=== PATIENT | male | born 1975 | race Caucasian/White ===

== ENCOUNTER 2017-05-08 18:35 | Emergency (ER) | payer SELFPAY ==
[~2017-05-08] VITALS: Ht 185.4 cm; Wt 104.3 kg
[2017-05-08 18:38] VITALS: BP 130/80
[2017-05-08] MEDS ORDERED: LIDOCAINE 1% 500 MG/50 ML VIAL INJ SCH (20:15)
[2017-05-08] MEDS ORDERED: LIDOCAINE 2% 1000 MG/50 ML VIAL INJ ONE (20:17)
[2017-05-08] MEDS ORDERED: HYDROcodone/APAP 5/325 MG 1 TAB TAB PO ONE (21:05)
[2017-05-08] MEDS ORDERED: BACITRACIN OINT 500 UNITS/GM PKT TP ONE ×2 (21:10→21:13)
[2017-05-08 21:42] VITALS: BP 130/89
== END 2017-05-08 21:42 | disposition home or self-care (01) ==
LOC: MED 18:35
DX: S61.210A Laceration without foreign body of right index finger without damage to nail, initial encounter (principal); J45.909 Unspecified asthma, uncomplicated; W45.8XXA Other foreign body or object entering through skin, initial encounter; Y93.H2 Activity, gardening and landscaping; Y92.89 Other specified places as the place of occurrence of the external cause; Y99.8 Other external cause status
CPT/HCPCS: 12001; 73140; 90471; 90715; 99284; J2001; Q0092

== ENCOUNTER 2017-05-10 18:11 | Emergency (ER) | payer SELFPAY ==
[~2017-05-10] VITALS: Ht 185.4 cm; Wt 104.3 kg
--- NOTE | 2017-05-10 18:35 | NUR ---
PT AMBULATED TO [facility]
[2017-05-10 18:40] VITALS: BP 144/97
--- NOTE | 2017-05-10 18:47 | NUR ---
PATIENT PRESENTS TO ED WITH SUTURE REPAIR TO RIGHT 2ND DIGIT S/P LAC WHILE GARDENING 05/08/2017 HX--DENIES RX--NONE; DENIES N/V/D; SKIN IS PINK/WARM/DRY; AAOX4 WITH EVEN AND STEADY GAIT; LUNGS CLEAR BL; HR EVEN AND REGULAR; PT DENIES ANY FEVER, CP, SOB, OR COUGH AT THIS TIME; PATIENT STATES PAIN OF 0/10 AT THIS TIME; VSS; PATIENT POSITIONED FOR COMFORT; ER MD MADE AWARE OF PT STATUS.
--- NOTE | 2017-05-10 19:16 | NUR ---
REPORT GIVEN TO JADEN SHAW FOR CONTINUATION OF CARE
--- NOTE | 2017-05-10 20:15 | NUR ---
PATIENT RESTING AT THIS TIME. NO SIGNS OF DISTRESS.
[2017-05-10 21:00] VITALS: BP 139/89
--- NOTE | 2017-05-10 21:00 | NUR ---
Patient discharged with v/s stable. Written and verbal after care instructions given and explained. Patient verbalized understanding. Ambulatory with steady gait. All questions addressed prior to discharge. Advised to follow up with PMD.
== END 2017-05-10 21:00 | disposition home or self-care (01) ==
LOC: MED 18:11
DX: S61.210D Laceration without foreign body of right index finger without damage to nail, subsequent encounter (principal); J45.909 Unspecified asthma, uncomplicated; X58.XXXD Exposure to other specified factors, subsequent encounter
CPT/HCPCS: 99281

== ENCOUNTER 2018-05-07 04:23 | Emergency (ER) | payer SELFPAY ==
[~2018-05-07] VITALS: Ht 182.9 cm; Wt 104.3 kg
[2018-05-07 04:30] VITALS: BP 148/90
--- NOTE | 2018-05-07 04:33 | NUR ---
PT PRESENTS TO ED WITH RIGHT HAND EDEMA. UNKNOWN CAUSE. PT STATES MILD TINGLING TO RIGHT HAND. CAP REFILL <3 SEC. RIGHT HAND STRENGTH REDUCED; STATES PAIN WHEN USING RIGHT HAND, 6/10 PAIN. RINGS REMOVED FROM RIGHT HAND. VSS. ER MD AWARE. CONTINUE TO MONITOR.
--- NOTE | 2018-05-07 04:33 | NUR ---
PT TAKEN TO BED 7
--- NOTE | 2018-05-07 05:23 | NUR ---
Ultrasound at bedside.
[2018-05-07 05:50] VITALS: BP 148/90
--- NOTE | 2018-05-07 05:50 | NUR ---
Patient discharged with v/s stable. Written and verbal after care instructions given and explained. Patient alert, oriented and verbalized understanding of instructions. Ambulatory with steady gait. All questions addressed prior to discharge. ID band removed. Patient advised to follow up with PMD. Rx of BACTRIMA AND KEFLEX given. Patient educated on indication of medication including possible reaction and side effects. Opportunity to ask questions provided and answered.
== END 2018-05-07 05:50 | disposition home or self-care (01) ==
LOC: MED 04:23
DX: L03.113 Cellulitis of right upper limb (principal); J45.909 Unspecified asthma, uncomplicated
CPT/HCPCS: 93971; 99284; Q0092

== ENCOUNTER 2020-08-31 16:51 | Emergency (ER) | payer SELFPAY ==
[~2020-08-31] VITALS: Ht 185.4 cm; Wt 124.7 kg
[2020-08-31 16:53] VITALS: BP 164/94
[2020-08-31] MEDS ORDERED: BACI1PAC6 TP (18:22)
[2020-08-31] MEDS ORDERED: BACITRACIN OINT 500 UNITS/GM PKT TP ONE (18:29)
[2020-08-31 18:33] VITALS: BP 156/65
[2020-08-31] MEDS: BACITRACIN OINT 500 UNITS/GM PKT TP ONE ×2 (18:34)
== END 2020-08-31 18:33 | disposition home or self-care (01) ==
LOC: MED 16:51
DX: I87.8 Other specified disorders of veins (principal); I87.2 Venous insufficiency (chronic) (peripheral); I10 Essential (primary) hypertension; J45.909 Unspecified asthma, uncomplicated; F12.90 Cannabis use, unspecified, uncomplicated; F17.210 Nicotine dependence, cigarettes, uncomplicated; Z79.899 Other long term (current) drug therapy
CPT/HCPCS: 73610; 82948; 99284

== ENCOUNTER 2020-09-29 22:07 | Emergency (ER) | payer SELFPAY ==
[~2020-09-29] VITALS: Ht 185.4 cm; Wt 113.4 kg
[~2020-09-29 22:07] MED LIST: BACI1PAC6 TP
[2020-09-29 22:15] VITALS: BP 151/91
--- NOTE | 2020-09-29 22:15 | NUR ---
pt ambulated to bed 11
--- NOTE | 2020-09-29 22:15 | NUR ---
44/m bib self c/o bilateral foot pain 09/16 for a couple of days. swelling and non-pitting edema noted upon assessment. pt also with cellulitis on left foot. denies pmh nkda
--- NOTE | 2020-09-29 22:20 | NUR ---
dr. khan at bedside examining patient
[2020-09-29] MEDS ORDERED: COMP1EAC MC (22:36)
[2020-09-29] MEDS ORDERED: CEPH-588 PO (22:36)
[2020-09-29] MEDS ORDERED: FURO-570 PO (22:36)
[2020-09-29] MEDS ORDERED: IBUP-2218 PO (22:36)
[2020-09-29] MEDS ORDERED: BACITRACIN OINT 500 UNITS/GM PKT TP ONE ×2 (22:45→22:47)
[2020-09-29 22:55] VITALS: BP 151/91
--- NOTE | 2020-09-29 22:55 | NUR ---
Patient discharged with v/s stable. Written and verbal after care instructions given and explained. Patient alert, oriented and verbalized understanding of instructions. Ambulatory with steady gait. All questions addressed prior to discharge. ID band removed. Patient advised to follow up with PMD. Rx of keflex, lasix, ibuprofen, compression stocking given. Patient educated on indication of medication including possible reaction and side effects. Opportunity to ask questions provided and answered.
== END 2020-09-29 22:55 | disposition home or self-care (01) ==
LOC: MED 22:07
DX: R60.0 Localized edema (principal); I87.319 Chronic venous hypertension (idiopathic) with ulcer of unspecified lower extremity; J45.909 Unspecified asthma, uncomplicated
CPT/HCPCS: 99283

== ENCOUNTER 2022-08-07 12:09 | Day surgery (SDC) | payer OTHER ==
[~2022-08-07] VITALS: Ht 185.4 cm; Wt 106.6 kg
[~2022-08-07 12:09] MED LIST changes: +BACI-416 TP; -BACI1PAC6 TP; +CEPH-588 PO; +COMP1EAC MC; +FURO-570 PO; +IBUP-2218 PO
[2022-08-07] MEDS ORDERED: diphenhydrAMINE 50 MG/ML VIAL ONE (13:18)
[2022-08-07] MEDS ORDERED: fentaNYL citrate 0.05 MG/ML VIAL ONE (13:18)
[2022-08-07] MEDS ORDERED: MIDAZOLAM 5 MG/5 ML VIAL ONE (13:18)
[2022-08-07] MEDS: MIDAZOLAM 5 MG/5 ML VIAL IV ONE (13:23)
[2022-08-07] MEDS: fentaNYL citrate 0.05 MG/ML VIAL IVP ONE (13:24)
[2022-08-07] MEDS: diphenhydrAMINE 50 MG/ML VIAL IVP ONE (13:25)
[2022-08-07] MEDS: LIDOCAINE 2% 100 MG/5 ML UJET TP ONE (13:25)
== END 2022-08-07 15:25 | disposition home or self-care (01) ==
LOC: MMU 12:09 → MDS 12:09
PROVIDERS: ATTEND Internal Medicine Gastroenterology
DX: Z12.11 Encounter for screening for malignant neoplasm of colon (principal); K63.5 Polyp of colon; K57.30 Diverticulosis of large intestine without perforation or abscess without bleeding; E78.5 Hyperlipidemia, unspecified; F17.210 Nicotine dependence, cigarettes, uncomplicated; Z79.899 Other long term (current) drug therapy
CPT/HCPCS: J1200; J2250; J3010

== ENCOUNTER 2023-04-08 23:19 | Emergency (ER) | payer OTHER ==
[~2023-04-08] VITALS: Ht 185.4 cm; Wt 106.6 kg
[~2023-04-08 23:19] MED LIST changes: -BACI-416 TP; +BACI-418 TP
[2023-04-08 23:22] VITALS: BP 139/77; PULSE 87; RESP 17; TEMP 98; O2SAT 96
[2023-04-09] MEDS ORDERED: KETOROLAC 30 MG/ML VIAL IM ONE (03:20)
[2023-04-09] MEDS ORDERED: ACETAMINOPHEN EXTRA STRENGTH 500 MG TAB PO ONE (03:20)
== END 2023-04-09 06:49 | disposition home or self-care (01) ==
LOC: MED 23:19
DX: I87.8 Other specified disorders of veins (principal); J45.909 Unspecified asthma, uncomplicated; Z79.899 Other long term (current) drug therapy; Z79.1 Long term (current) use of non-steroidal anti-inflammatories (NSAID); Z79.2 Long term (current) use of antibiotics
CPT/HCPCS: 93970; 96372; 99285; J1885; Q0092